=== PATIENT | female | born 1985 | race Caucasian/White ===

== ENCOUNTER 2020-07-16 21:27 | Emergency (ER) | payer MEDICAID, OTHER ==
[~2020-07-16] VITALS: Ht 170.2 cm; Wt 58.5 kg
--- NOTE | 2020-07-16 21:44 | NUR ---
PT BIBS C/O FEVER, LOSS OF APPETITE X1 WEEK. COVID (-) X2 PER PT. TO ER BED 7
[2020-07-16] MEDS ORDERED: ACETAMINOPHEN 325 MG TABLET ONE (21:46)
[2020-07-16] MEDS ORDERED: ACETAMINOPHEN 325 MG TABLET PO ONE (22:00)
--- NOTE | 2020-07-16 22:00 | NUR ---
STREP SWAB COLLECTED AND SENT TO LAB
--- NOTE | 2020-07-16 23:30 | NUR ---
Patient discharged to home in stable condition. Written and verbal after care instructions given. Patient verbalizes understanding of instruction.Pt ambulatory with a steady gait
[2020-07-16 23:31] VITALS: BP 138/84
== END 2020-07-16 23:31 | disposition home or self-care (01) ==
LOC: ER 21:30
DX: J40 Bronchitis, not specified as acute or chronic (principal); R00.0 Tachycardia, unspecified; Z88.0 Allergy status to penicillin; Z88.8 Allergy status to other drugs, medicaments and biological substances
CPT/HCPCS: 71045-TC; 86403-TC

== ENCOUNTER 2020-10-02 10:06 | Emergency (ER) | payer MEDICAID ==
[~2020-10-02] VITALS: Ht 170.2 cm; Wt 56.7 kg
--- NOTE | 2020-10-02 10:14 | NUR ---
BIB SELF C/O CHEST TIGHTNESS FOR 4 DAYS NON-RADIATING, TO ER BED 11, HOOKED TO MONITOR, CHANGED TO HOSP GOWN, WARM BLANKET PROVIDED, AAO x 4. BREATHING EVEN AND UNLABORED. AWAITING MD MARS
[2020-10-02 10:49] LABS: BASOPHILS % (AUTO) 0.8 % (0.0-2.0); HEMATOCRIT 34 % (33-45); HEMOGLOBIN 11.8 g/dL (11.5-14.8); LYMPHOCYTES # (AUTO) 0.9 /CMM (0.8-4.8); LYMPHOCYTES % (AUTO) 22.9 % (20.0-44.0); MEAN CORPUSCULAR HGB CONC 35 g/dl (31.0-36.0); MEAN CORPUSCULAR VOLUME 97 fL (82-100); MONOCYTES # (AUTO) 0.3 /CMM (0.1-1.30); MONOCYTES % (AUTO) 8.5 % (2.0-12.0); NEUTROPHILS # (AUTO) 2.5 /CMM (1.8-8.9); NEUTROPHILS % (AUTO) 64.8 % (43.0-81.0); PLATELET COUNT (AUTO) 147 /CMM (150-450); RED BLOOD CELL COUNT(AUTO) 3.51 MIL/uL (4.0-5.2); WHITE BLOOD COUNT (AUTO) 3.8 K/uL (4.3-11.0)
[2020-10-02 11:03] LABS: CALCIUM, SERUM 8.9 mg/dL (8.5-10.1); CARBON DIOXIDE 30 mmol/L (21-32); CHLORIDE 103 mmol/L (98-107); CREATININE 0.9 mg/dL (0.6-1.3); GLUCOSE 97 mg/dL (74-106); POTASSIUM 3.7 mmol/L (3.5-5.1); SODIUM SERUM 139 mmol/L (136-145); UREA NITROGEN, BLOOD 8 mg/dL (7-18)
--- NOTE | 2020-10-02 11:45 | NUR ---
Patient discharged to home in stable condition. Written and verbal after care instructions given. Patient verbalizes understanding of instruction.
[2020-10-02 11:46] VITALS: BP 118/58
== END 2020-10-02 11:47 | disposition home or self-care (01) ==
LOC: ER 10:11
DX: F41.1 Generalized anxiety disorder (principal); Z88.0 Allergy status to penicillin; Z88.2 Allergy status to sulfonamides; Z88.1 Allergy status to other antibiotic agents
CPT/HCPCS: 36415; 71045-TC; 80048-TC; 84484-TC; 85025-TC

== ENCOUNTER 2020-11-08 19:39 | Emergency (ER) | payer MEDICAID ==
[~2020-11-08] VITALS: Ht 170.2 cm; Wt 56.7 kg
--- NOTE | 2020-11-08 20:00 | NUR ---
BIBS FOR C/O L SIDED CP EVERY NIGHT 4 NIGHTS. PT DENIED SOB. N/V. AMBULATORY TO BED 4, WAS PLACED ON A MONITOR , VSS. WILL CONT TO MONITOR
--- NOTE | 2020-11-08 20:21 | NUR ---
blood drawn and sent to lab
--- NOTE | 2020-11-08 20:22 | NUR ---
X RAY AT BED SIDE
[2020-11-08 20:24] LABS: BASOPHILS % (AUTO) 0.6 % (0.0-2.0); EOSINOPHILS % (AUTO) 0.5 % (0.0-6.0); HEMATOCRIT 37 % (33-45); HEMOGLOBIN 12.9 g/dL (11.5-14.8); LYMPHOCYTES # (AUTO) 0.5 /CMM (0.8-4.8); LYMPHOCYTES % (AUTO) 7.1 % (20.0-44.0); MEAN CORPUSCULAR HGB CONC 35 g/dl (31.0-36.0); MEAN CORPUSCULAR VOLUME 98 fL (82-100); MONOCYTES # (AUTO) 0.4 /CMM (0.1-1.30); MONOCYTES % (AUTO) 4.8 % (2.0-12.0); NEUTROPHILS # (AUTO) 6.7 /CMM (1.8-8.9); PLATELET COUNT (AUTO) 191 /CMM (150-450); WHITE BLOOD COUNT (AUTO) 7.7 K/uL (4.3-11.0)
[2020-11-08] MEDS ORDERED: ASPIRIN 325 MG TABLET PO ONE (20:30)
[2020-11-08] MEDS ORDERED: ASPIRIN 325 MG TABLET ONE (20:30)
[2020-11-08] MEDS ORDERED: IV NS 0.9% 1,000 ML BAG IV ONE (20:30)
[2020-11-08] MEDS ORDERED: LORA-259 PO ×2 (20:34→20:48)
[2020-11-08 20:49] LABS: CALCIUM, SERUM 9.2 mg/dL (8.5-10.1); CARBON DIOXIDE 26 mmol/L (21-32); CHLORIDE 102 mmol/L (98-107); CREATININE 0.7 mg/dL (0.6-1.3); GLUCOSE 91 mg/dL (74-106); POTASSIUM 4.1 mmol/L (3.5-5.1); SODIUM SERUM 139 mmol/L (136-145); UREA NITROGEN, BLOOD 8 mg/dL (7-18)
[2020-11-08 20:58] LABS: ALANINE AMINOTRANSFERASE 23 U/L (12-78); ALBUMIN 4.5 g/dL (3.4-5.0); ALKALINE PHOSPHATASE 41 U/L (46-116); ASPARTATE AMINOTRANSFERASE 14 U/L (15-37); BILIRUBIN,DIRECT 0.1 mg/dL (0.0-0.2); BILIRUBIN,TOTAL 0.6 mg/dL (0.2-1.0); TOTAL PROTEIN, SERUM 7.8 g/dL (6.4-8.2)
[2020-11-08] MEDS ORDERED: NAPR-1164 PO (21:21)
[2020-11-08] MEDS ORDERED: KETOROLAC TROMETHAMINE INJ 30 MG/ML VIAL ONE (21:27)
[2020-11-08] MEDS ORDERED: KETOROLAC TROMETHAMINE INJ 30 MG/ML VIAL IV ONE (21:30)
--- NOTE | 2020-11-08 21:38 | NUR ---
PT is medically stable for D/C. IV removed. Catheter intact and site benign. Pressure and 4x4 applied to site. No bleeding noted.Patient discharged to home in stable condition. Rx and Written and verbal after care instructions given. Patient verbalizes understanding of instruction. father will provided ride
--- NOTE | 2020-11-08 22:31 | NUR ---
Misa owens in [facility] - 11/08/20 at 2232 by EMMANUEL pt was transferred to replaced by [facility] under acls
[2020-11-08 23:46] VITALS: BP 122/75
== END 2020-11-08 21:40 | disposition home or self-care (01) ==
LOC: ER 19:40
DX: R07.89 Other chest pain (principal); F41.9 Anxiety disorder, unspecified; R42 Dizziness and giddiness; Z88.0 Allergy status to penicillin; Z88.2 Allergy status to sulfonamides; Z88.8 Allergy status to other drugs, medicaments and biological substances; Z79.899 Other long term (current) drug therapy
CPT/HCPCS: 36415; 71045; 80048; 80076; 84484; 85025; 85730; 93005; 96361; 96374; 99285; J1885; J7030

== ENCOUNTER 2021-04-01 03:56 | Emergency (ER) | payer MEDICAID ==
[~2021-04-01] VITALS: Ht 170.2 cm; Wt 56.7 kg
[2021-04-01 03:56] VITALS: BP 123/70
[~2021-04-01 03:56] MED LIST: NAPR-1164 PO
[2021-04-01] MEDS ORDERED: PERM60CR4 TP (04:47)
[2021-04-01] MEDS ORDERED: HYDR-500 PO (04:47)
== END 2021-04-01 05:10 | disposition home or self-care (01) ==
LOC: ER 04:02
DX: L29.9 Pruritus, unspecified (principal); Z88.0 Allergy status to penicillin; Z88.2 Allergy status to sulfonamides; Z88.1 Allergy status to other antibiotic agents